=== PATIENT | male | born 1960 | race Caucasian/White ===

== ENCOUNTER → 2019-02-25 | Outpatient (CLI) | payer OTHER ==
--- NOTE | 2019-02-25 17:20 | PCVCIMAG ---
APPROVED REPORT Study performed: 02/25/2019 16:10:17 Exam: Stress Echocardiogram Indication: Inc Fatigue, Dec exercise tolerence,GERBER Patient Location: Echo lab Stress Nurse: Rosetta Hodge RN Room #: 2 Status: routine Ht: 5 ft 11 in HR: 84 bpm BP: 124/84 mmHg Rhythm: NSR Medical History Medical History: GERBER, Previous Cardiac Procedures: NONE Pretest Chest Pain Characteristics: NONE Exercise History: NONE Procedure The patient underwent an Exercise Stress Test using the Nate Protocol. Blood pressure, heart rate, and EKG were monitored. An Echocardiogram was performed by platform power technician in four stages in quad fashion. At peak stress, four selected images were obtained and placed side by side with resting images for comparison. Stress Test Details Stress Test: Exercise stress testing was performed using a Nate protocol. HR Resting HR: 84 bpmMax Heart Rate (APMHR): 162 bpm Max HR Achieved: 157 bpmTarget HR (85% APMHR): 137 bpm % of APMHR: 96 Recovery HR: 112 bpm HR response to stress: Normal HR response to stress BP Resting BP: 124/84 mmHg Max BP: 170/80 mmHg Recovery BP: 152/76 mmHg BP response to stress: Normal blood pressure response to stress. ECG Resting ECG: Sinus Rhythm Stress ECG: Sinus Rhythm, NSSTT changes ST Change: Non-ischemic Maximum ST Deviation: -0.65 mm Arrhythmia: Rare PACs Recovery ECG: Sinus Rhythm Recovery ST Change: Non-ischemic Recovery ST Deviation: -0.75 mm Recovery Arrhythmia: None Clinical Reason for Termination: Maximal effort Stress Symptoms: fatigue,dyspnea Exercise duration: 6 min 29 sec Highest Stage Achieved: Stage 3: 3.4 mph at 14% grade. Exercise capacity: 8.4 METs Overall Exercise Capacity for Age: Poor Scale: Sedentary Angina Score: None No complications. Stress ECG Conclusion Eason Treadmill Score is 9.3 which is Low risk. Pre-Stress Echo The resting Echocardiogram showed normal left ventricular contractility with an estimated Ejection Fraction of about 55-60%. Normal wall motion in all segments on baseline images. Post-Stress Echo The stress Echocardiogram showed normal left ventricular contractility with an estimated Ejection Fraction of about 65-70%. Normal augmentation of wall motion in all segments on post stress images. Clinical No clinical or ECG evidence for ischemia. Conclusion Clinical Response: Non-ischemic Exercise Capacity: Below Average Stress ECG Response: Non-ischemic Stress Echo Images: Non-ischemic No clinical, EKG or echocardiographic evidence for ischemia. No echocardiographic evidence for exercise induced ischemia. Normal stress echocardiogram with maximal exercise stress. Normal color doppler. No regurgitation or stenosis present on pulmonic, mitral, tricuspid and aortic valves. <Conclusion> No clinical, EKG or echocardiographic evidence for ischemia. No echocardiographic evidence for exercise induced ischemia. Normal stress echocardiogram with maximal exercise stress. Normal color doppler. No regurgitation or stenosis present on pulmonic, mitral, tricuspid and aortic valves.
== END | disposition home or self-care (01) ==
LOC: PCVCIMAG 15:53
PROVIDERS: ATTEND Internal Medicine Cardiovascular Disease
DX: R06.09 Other forms of dyspnea (principal); R53.83 Other fatigue; E78.5 Hyperlipidemia, unspecified; I10 Essential (primary) hypertension
CPT/HCPCS: 93325; 93351